=== PATIENT | female | born 1975 | race Two or more races ===

== ENCOUNTER → 2017-02-25 | Outpatient (CLI) | payer SELFPAY ==
--- NOTE | ~2017-02-25 | US116 ---
[facility] A Service of [facility] RADIOLOGY TEXT RESULTS PATIENT: KILEY LILLY LOCATION: [facility] : 71 UNIT #: [id number] AGE: [address]: MELYSSA SAVAGE SEX: F ORDER DR: [id number] [facility] [address] [place], [place] [address] [id number] O MR#: [id number] #: [id number] NAME: KILEY LILLY : 1975 SEX: F STUDY DATE/TIME: 02/25/2017 12:58 UNIT: [facility] ROOM: STUDY DESCRIPTION: US Soft Tissue Head/Neck Attending Physician: Hawk Tejada Referring Physician: Hawk Tejada Ordering Physician: Hawk Tejada Primary Care Physician: Ludmila Mock M.D. MEDICAL IMAGING REPORT This report is preliminary unless electronic signature is present EXAM Soft tissue neck ultrasound. INDICATIONS Palpable nodule on left side of neck since 2006. FINDINGS Ultrasound of the left side of the neck where the patient indicates palpable abnormality shows a 2.1 x 0.7 x 3.0 cm lymph node. A fatty hilum is visible. There is also a 6-mm lymph node in the same portion of the neck. Incidental note is made of a well-circumscribed hypoechoic thyroid mass that measures at least 2.5 cm in diameter. IMPRESSION 1. Palpable abnormality on the left side of the patient's neck represents an enlarged lymph node measuring up to 3 cm in diameter. The history I am receiving states that it has been present since 2006, as far as its physical exam appearance. 2. At least a 2-3 cm long hypoechoic well-circumscribed thyroid nodule is visible on the left side. Clinic correlation and correlation with previous studies is recommended. If the thyroid has not been worked up before, a thyroid ultrasound should be considered, probably followed by biopsy of the dominant thyroid nodule. The lymph node is felt to be new on physical examination, and it can certainly be sampled with fine-needle aspiration. Dictated by... Paramjit Black M.D. THIS IS AN ELECTRONICALLY VERIFIED REPORT Paramjit Black M.D. at 03/09/2017 6:03 AM JOSE J/adela [facility] [place] A Service of [facility] RADIOLOGY TEXT RESULTS PATIENT: KILEY LILLY LOCATION: [facility] : 71 UNIT #: [id number] AGE: [address]: MELYSSA SAVAGE SEX: F ORDER DR: TD: 02/26/2017 18:52 JOB #: [id number] MEDICAL IMAGING REPORT Page 1 of 1 COPY
== END | disposition home or self-care (01) ==
LOC: CWCC 12:38
DX: M54.2 Cervicalgia (principal); R22.1 Localized swelling, mass and lump, neck; E04.1 Nontoxic single thyroid nodule
CPT/HCPCS: 76536